=== PATIENT | female | born 1960 | race Caucasian/White ===

== ENCOUNTER → 2016-06-29 | Outpatient (CLI) | payer OTHER ==
[~2016-06-29] VITALS: Ht 167.6 cm; Wt 76.2 kg
[~2016-06-29] MED LIST: ADVAIR 250/501 DISK IH; ADVIL200 MG PO; ALBUTEROL SULF8.5 GM IH; ASPIRIN81 M2 PO; ATARAX,VISTARIL25 MG PO; BENADRYL ALLERG25 MG PO; CIPRO500 MG PO; CLOBEX59 ML TP; COMBIVENT RESPIM4 GM IH; DOXYCYCLINE HY100 M1 PO; FAMCICLOVIR250 MG; FISH OIL300 MG PO; FLAGYL500 MG PO; FLEXERIL10 MG PO; HYCODAN SYRUP480 ML PO; IBUPROFEN600 MG PO; KENALOG,ARISTOC80 G1 TP; LEVOFLOXACIN500 MG PO; LIPITOR20 MG PO; LORTAB 5-325 M1 EACH PO; MOBIC15 MG PO; MUCUS ER600 MG PO; NAPROSYN375 MG PO; NAPROSYN500 MG PO; NORCO 5/3251 TABLET PO; NORVASC10 MG PO; ONE DAILY FOR1 EAC1 PO; PREDNISONE10 M1 PO; PREDNISONE20 MG PO; RELAFEN500 M1 PO; SINGULAIR10 MG PO; TEMOVATE 0.05%30 GM TP; TESSALON PERLE100 MG PO; TORADOL10 MG PO; TRAMADOL HCL50 MG PO; ULTRAM50 MG PO; VALIUM5 MG PO; VENTOLIN HFA18 GM IH; ZOFRAN ODT4 MG PO
== END | disposition home or self-care (01) ==
LOC: AMB 09:51
PROC: 0DBL8ZX Excision of Transverse Colon, Via Natural or Artificial Opening Endoscopic, Diagnostic (ICD-10-PCS; principal; 2016-06-29)
PROC: 0DBN8ZX Excision of Sigmoid Colon, Via Natural or Artificial Opening Endoscopic, Diagnostic (ICD-10-PCS; principal; 2016-06-29)
PROC: 0DBP8ZX Excision of Rectum, Via Natural or Artificial Opening Endoscopic, Diagnostic (ICD-10-PCS; principal; 2016-06-29)
PROC: 0DBK8ZX Excision of Ascending Colon, Via Natural or Artificial Opening Endoscopic, Diagnostic (ICD-10-PCS; principal; 2016-06-29)
DX: Z12.11 Encounter for screening for malignant neoplasm of colon (principal); D12.2 Benign neoplasm of ascending colon; D12.5 Benign neoplasm of sigmoid colon; D12.3 Benign neoplasm of transverse colon; K57.30 Diverticulosis of large intestine without perforation or abscess without bleeding; K62.1 Rectal polyp; K64.8 Other hemorrhoids; I10 Essential (primary) hypertension; J44.9 Chronic obstructive pulmonary disease, unspecified; J45.909 Unspecified asthma, uncomplicated; K21.9 Gastro-esophageal reflux disease without esophagitis; F17.210 Nicotine dependence, cigarettes, uncomplicated
CPT/HCPCS: 88305; 94640

== ENCOUNTER → 2016-12-09 | Outpatient (CLI) | payer OTHER | END | disposition home or self-care (01) | LOC: RES 07:47 | DX: Z02.71 Encounter for disability determination (principal) | CPT/HCPCS: 94620 ==